=== PATIENT | male | born 1950 | race Caucasian/White ===

== ENCOUNTER 2021-05-11 07:52 | Day surgery (SDC) | payer MEDICARE, OTHER, SELFPAY ==
[2021-05-07 10:46] VITALS: BMI 26.3
--- NOTE | 2021-05-08 09:34 | HO.ANESPROP2 ---
Documented by User: Vickie Corley NP 05/08/21 09:34 HPI - Anesthesia Eval Consult details Narrative: 70yo M for Colonoscopy [facility] Past Medical History Medical History BPH (benign prostatic hyperplasia) Diverticulosis Glaucoma HTN (hypertension) Surgical History Surgical History H/O colonoscopy Hx of bilateral inguinal hernia repair Hx of cataract extraction Hx of total adrenalectomy Social History Social History (Updated 05/07/21 @ 10:43 by Sheri Che RN) Household Members: Spouse Alcohol intake: current Alcohol intake frequency: 0-2 drinks per day Patient Tobacco Use Status: Tobacco use Unknown Advance Directives Information Provided: No Advance Directives on File: No Meds Allergies Allergy/AdvReac Type Severity Reaction Status Date / Time No Known Allergies Allergy Verified 05/11/21 08:49 [No Known Allergies*] Home Medications Medication Instructions Recorded Confirmed Last Taken Type brimonidine 0.2 % eye drops 1 drp OPHTHALMIC (EYE) TID 05/07/21 05/07/21 Unknown History dorzolamide 22.3 mg-timolol 6.8 1 drp OPHTHALMIC (EYE) BID 05/07/21 05/11/21 05/11/21 06:00 History mg/mL eye drops dutasteride 0.5 mg capsule 0.5 mg PO DAILY 05/07/21 05/07/21 Unknown History hydrochlorothiazide 25 mg tablet 25 mg PO DAILY 05/07/21 05/07/21 Unknown History ibuprofen 200 mg tablet 200 mg PO TID PRN 05/07/21 05/07/21 Unknown History latanoprost 0.005 % eye drops 1 drp OPHTHALMIC (EYE) QPM 05/07/21 05/07/21 Unknown History pregabalin 50 mg capsule 150 mg PO BEDTIME 05/07/21 05/07/21 Unknown History Exam Exam Date and Time: May 08, [id number] Height,Weight and Vital Signs: Height 6 ft Weight 87.997 kg Assessment and Plan Assessment Anesthesia Assessment: Chart Reviewed Documented by User: Yari Nino MD 05/11/21 09:10 [facility] Past Medical History Medical History BPH (benign prostatic hyperplasia) Diverticulosis Glaucoma HTN (hypertension) Family History Family history of problems with anesthesia: No Surgical History Surgical History H/O colonoscopy Hx of bilateral inguinal hernia repair Hx of cataract extraction Hx of total adrenalectomy History of Problems with Anesthesia: No Social History Social History (Updated 05/07/21 @ 10:43 by Sheri Che RN) Household Members: Spouse Alcohol intake: current Alcohol intake frequency: 0-2 drinks per day Patient Tobacco Use Status: Tobacco use Unknown Advance Directives Information Provided: No Advance Directives on File: No Meds Allergies Allergy/AdvReac Type Severity Reaction Status Date / Time No Known Allergies Allergy Verified 05/11/21 08:49 [No Known Allergies*] Home Medications Medication Instructions Recorded Confirmed Last Taken Type brimonidine 0.2 % eye drops 1 drp OPHTHALMIC (EYE) TID 05/07/21 05/07/21 Unknown History dorzolamide 22.3 mg-timolol 6.8 1 drp OPHTHALMIC (EYE) BID 05/07/21 05/11/21 05/11/21 06:00 History mg/mL eye drops dutasteride 0.5 mg capsule 0.5 mg PO DAILY 05/07/21 05/07/21 Unknown History hydrochlorothiazide 25 mg tablet 25 mg PO DAILY 05/07/21 05/07/21 Unknown History ibuprofen 200 mg tablet 200 mg PO TID PRN 05/07/21 05/07/21 Unknown History latanoprost 0.005 % eye drops 1 drp OPHTHALMIC (EYE) QPM 05/07/21 05/07/21 Unknown History pregabalin 50 mg capsule 150 mg PO BEDTIME 05/07/21 05/07/21 Unknown History Exam Airway Mallampati Class: II TM Dist: >3cm Neck ROM: Full Assessment and Plan Assessment Anesthesia Assessment: Anesthesia Plan Discussed Final Anesthetic Review Family History of Problems with Anesthesia: No History of Problems with Anesthesia: No NPO: Yes ASA Class: II Final Preanesthetic Review: No Changes in Pt Med Stat, Meds/Allgs Chart Reviewed, Consent Obtained/Reviewed and Anes Risks/Benef Reviewed Patient Risk: Low Procedure Risk: Low Assessment/Block/Sedation in SS: Assess/Block/Sedation-SS Anesthetic Plan Anesthetic Plan: MAC:
[2021-05-11 08:52] VITALS: BP 138/66; PULSE 56; RESP 18; TEMP 36.3; O2SAT 0
[2021-05-11] MEDS: Lactated Ringers 1,000 ML 100 ML IVCONT (08:57)
[2021-05-11 10:14] VITALS: BP 123/66; PULSE 68; RESP 16; TEMP 36.9; O2SAT 97
--- NOTE | 2021-05-11 10:14 | P.BOP_ITS ---
Brief Operative Note Date of Service: 05/11/21 Pre-op diagnosis: Screening Post-op diagnosis: other (Colon polyps) Procedure: Colonoscopy to the cecum with biopsy and removal of polyps Surgeon: Ti Jackson Anesthesia: MAC Was an [employer] used for this Procedure?: No Estimated blood loss (mL): 3.0 Pathology: other (A. Ascending colon polyps) Condition: stable Disposition: PACU
[2021-05-11 10:29] VITALS: BP 117/75; PULSE 60; RESP 18; O2SAT 99
--- NOTE | 2021-05-11 19:02 | OP_ITS ---
SURGEON: Ti Jackson MD INDICATIONS: The patient presents for evaluation of personal history of tubular adenoma of the colon, and colorectal cancer screening. Full consent has been obtained from him for this, including risks of bleeding and perforation. PREOPERATIVE DIAGNOSIS: POSTOPERATIVE DIAGNOSIS: PROCEDURE PERFORMED: Colonoscopy to the cecum with biopsy and removal of polyps. ESTIMATED BLOOD LOSS: COMPLICATIONS: ANESTHESIA: Monitored anesthesia care. ASSISTANTS: SPECIMENS: PREOPERATIVE DIAGNOSES: Personal history of tubular adenoma of the colon and colorectal cancer screening. POSTOPERATIVE DIAGNOSES: Personal history of tubular adenoma of the colon and colorectal cancer screening, small colon polyps, diverticulosis and internal hemorrhoids. DESCRIPTION OF PROCEDURE: The patient was placed in the left lateral decubitus position. The digital rectal exam revealed no abnormalities. The Olympus video pediatric colonoscope was entered into the rectum and advanced easily to the cecum. Once in the cecum, I did identify normal-appearing cecal pouch with appendiceal orifice and a normal-appearing ileocecal valve. The entire cecum and ileocecal valve appeared normal. The scope was slowly withdrawn assessing all mucosal surfaces carefully. Preparation was excellent. In the ascending colon, were 2 flat approximately 5 mm polyps, which were each biopsied and completely removed with cold biopsy forceps. I did not visualize any other polyps, colitis, nor angiodysplasia. There was a moderate amount of sigmoid diverticulosis. In the rectum, scope was retroflexed visualizing internal hemorrhoids, but no other pathology. The rectal mucosa appeared normal. The scope was straightened out and withdrawn from the patient. He tolerated procedure well and was returned to recovery area in stable condition. IMPRESSION: 1. Small colon polyps, status post biopsy and removal. 2. Diverticulosis. 3. Internal hemorrhoids. PLAN: The results of the biopsy will be checked. Given his previous history, I would recommend a followup colonoscopy in 5 years for further screening and surveillance. He was advised not to use any aspirin nor NSAIDs for 1 week. This has been discussed with his . MD YUAN Pozo/[place]ORD / [phone]
== END 2021-05-11 11:03 | disposition home or self-care (01) ==
PROVIDERS: PCP Internal Medicine; Visit Provider Internal Medicine
PROC: 0DJD8ZZ Inspection of Lower Intestinal Tract, Via Natural or Artificial Opening Endoscopic (ICD-10-PCS; CPT 45378; principal; 2021-05-11 09:10)
DX: Z12.11 Encounter for screening for malignant neoplasm of colon (principal); Z86.010 Personal history of colon polyps; D12.2 Benign neoplasm of ascending colon; K57.30 Diverticulosis of large intestine without perforation or abscess without bleeding; K64.8 Other hemorrhoids; K59.00 Constipation, unspecified; I10 Essential (primary) hypertension; N40.0 Benign prostatic hyperplasia without lower urinary tract symptoms; Z79.899 Other long term (current) drug therapy
CPT/HCPCS: 45380; 88305

== ENCOUNTER 2023-09-24 18:05 | Emergency (ER) | payer OTHER, MEDICARE, SELFPAY ==
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
[2023-09-24 18:12] VITALS: BP 142/93; PULSE 87; O2SAT 97
[2023-09-24 18:25] VITALS: BP 179/88; PULSE 80; RESP 16; TEMP 36.8; O2SAT 98; BMI 24.4
--- NOTE | 2023-09-24 18:26 | ECG_ITS ---
Test Reason : CHEST WALL PAIN Blood Pressure : / mmHG Vent. Rate : 077 BPM Atrial Rate : 077 BPM P-R Int : 184 ms QRS Dur : 142 ms QT Int : 408 ms P-R-T Axes : 067 -31 019 degrees QTc Int : 461 ms Sinus rhythm with Premature atrial complexes with Aberrant conduction Left axis deviation Right bundle branch block Abnormal ECG No previous ECGs available Referred By: Lamar Barber Electronically Signed By:Watson Bravo
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
[2023-09-24 20:00] VITALS: BP 171/73; PULSE 81; RESP 16; TEMP 36.9; O2SAT 97
--- NOTE | 2023-09-24 21:57 | MHC.EDTECH ---
This tech assisted nurse with traveler changer,belonging list completed and copy placed in chart.
== END 2023-09-25 00:29 | disposition short-term general hospital (02) ==
PROVIDERS: Emergency Provider Emergency Medicine; PCP Internal Medicine
DX: S22.20XA Unspecified fracture of sternum, initial encounter for closed fracture (principal); S22.41XA Multiple fractures of ribs, right side, initial encounter for closed fracture; V43.52XA Car driver injured in collision with other type car in traffic accident, initial encounter; W22.11XA Striking against or struck by driver side automobile airbag, initial encounter; Y93.89 Activity, other specified; Y92.414 Local residential or business street as the place of occurrence of the external cause; Y99.9 Unspecified external cause status
CPT/HCPCS: 70450; 71250; 72125; 93005; 99285

== ENCOUNTER → 2023-09-24 18:26 | Outpatient (BNV) | payer MEDICARE, SELFPAY | PROVIDERS: Emergency Provider Emergency Medicine; PCP Internal Medicine; Visit Provider Internal Medicine Cardiovascular Disease | DX: R07.9 Chest pain, unspecified (principal) | CPT/HCPCS: 93010 ==

== ENCOUNTER 2024-09-18 11:19 | Outpatient (REF) | payer MEDICARE, OTHER, SELFPAY ==
--- NOTE | ~2024-09-18 | MR_ITS ---
CLINICAL HISTORY: RT ANKLE NON HEALING WOUND R O OSTEO MR right ankle with and without gadolinium Comparison: None Findings: No acute fractures. There is decreased T1 signal and increased T2 signal within the superior aspect of the lateral cuneiform, as well as small areas of increased enhancement in the proximal superior medial and middle cuneiforms and small kissing lesion on the distal navicular bone. There is a complete fusion of the distal tibia, fibula, talus, navicular bone and calcaneus. There is a skin defect in the lateral ankle. No underlying fluid collection or abscess. No abnormal marrow signal deep to the wound in the fused ankle bones. No abnormal fluid within the tendon sheaths or muscle bellies. IMPRESSION: 1. Skin defect in the lateral aspect of the ankle without underlying abscess or fluid collection. No underlying osteomyelitis in the fused ankle bones deep to the skin defect. 2. Increased T2 signal and increased enhancement in the cuneiforms and distal navicular bone thought to most likely represent active degenerative disease, less likely osteomyelitis. This document has been electronically signed by: Thompson Jalloh MD on 09/19/2024 01:56:50
[2024-09-18] MEDS: gadobutroL 10 ML VIAL 9 ML IVPUSH (12:07)
--- OUTSIDE RECORDS SUMMARY | 2024-09-18 13:07 | XMS_ITS | Clinical Summary ---
Author Organization [facility] Address [address] [id number] Care Team Providers Care Composition Worker Name Role Phone Jonathan Little MD Primary Care Provider Unavail able Allergies No known active allergies Medications Medication Sig Dispensed Refills Start Date End Date Status Timolol Hemihydrate (BETIMOL OP) 2 times a day, Refills 0, Maintenance, 09/12/20 14:18:00 EST, Partial fill upon patient request if the prescription is for a schedule II opioid drug. 0 09/12/2020 Active latanoprost (XALATAN) 0.005 % ophthalmic solution INSTILL 1 DROP IN LEFT EYE EVERY NIGHT AT BEDTIME. SEPARATE BY AT LEAST 10 MINUTES FROM OTHER INTRAOCULAR PRESSURE REDUCING EYE DROPS 0 09/12/2020 Active hydroCHLOROthiazide (HYDRODIURIL) tablet 25 mg Take 1 tablet (25 mg total) by mouth daily. 0 09/12/2020 Active dutasteride (AVODART) 0.5 MG capsule Take 1 capsule (0.5 mg total) by mouth daily. 0 09/12/2020 Active dorzolamide-timolol (COSOPT) 22.3-6.8 MG/ML ophthalmic solution Place 1 drop into the left eye 2 (two) times a day. 0 Active brimonidine (ALPHAGAN) 0.2 % ophthalmic solution 0 Activ e Social History Tobacco Use Types Packs/Day Years Used Date Smoking Tobacco: Former Cigarettes 1 - 1974 Smokeless Tobacco: Never Tobacco Cessation:Counseling Given: Not Answered Alcohol Use Standard Drinks/Week Comments Yes 5 (1 standard drink = 0.6 oz pur e alcohol) Sex and Gender Information Value Date Recorded Sex Assigned at Not on file Gender Identity Not on file Sexual Orientation Not on file Job Start Date Occupation Industry Not on file Not on file Not on file Last Filed Vital Signs Vital Sign Reading Time Taken Comments Blood Pressure - - Pulse - - Temperature - - Respiratory Rate - - Oxygen Saturation - - Inhaled Oxygen Concentration - - Weight 90.7 kg (200 lb) 11/04/2022 2:22 PM EST Height 188 cm (6' 2 ) 11/04/2022 2:22 PM EST Body Mass Index 25.68 11/04/2022 2:22 PM EST Plan of Treatment Health Maintenance Due Date Last Done Comments Hepatitis C Screening 1950 COVID-19 Vaccine (#1) 1948 Depression Screening 1960 Preventative Health Evaluation 1966 DTap / Tdap / Td (1 - Tdap) 1967 Shingrix-Zoster Vaccine (1 of 2) 1998 Fall Risk Assessment 2013 Pneumococcal Vaccine (1 of 1 - PCV) 2013 RSV Adult > 60+ Yrs or Pregn ant (1 - 1-dose 75+ series) 2023 Influenza Vaccine (#1) 2024 06/11/2020 Hepatitis B Vaccines Aged Out No long er eligible based on patient's age to complete this topic RSV Ped < 20 months Aged Out No longe r eligible based on patient's age to complete this topic Care Teams Composition Worker Relationship Specialty Start Date End Date Jonathan Little MD PCP - General Internal Medicine 10/06/22
--- OUTSIDE RECORDS SUMMARY | 2024-09-18 13:07 | XMS_ITS ---
Author Name [facility] Organization Unknown History of Medication Use Medication Directions Dispensed Refills Start Date End Date [facility] lidocaine (PF) 10 mg/mL (1 %) injection solution Take 2 mL by injection route. 07/13/2023 completed lorazepam 0.5 mg tablet TAKE 1 TABLET BY MOUTH BEFORE FLIGHT NEEDED 04/30/2023 completed hydrochlorothiazide 25 mg tablet TAKE 1 TABLET BY MOUTH EVERY DAY 04/30/2023 active hydrochlorothiazide 25 mg tablet TAKE 1 TABLET BY MOUTH EVERY DAY 07/13/2023 active dutasteride 0.5 mg capsule TAKE 1 CAPSULE BY MOUTH EVERY DAY 07/13/2023 active ciprofloxacin 500 mg tablet TAKE 1 TABLET BY MOUTH 1 HOUR BEFORE PROCEDURE AND 1 TABLET 10 HOURS AFTER 07/13/2023 completed latanoprost 0.005 % eye drops INSTILL 1 DROP LEFT EYE EVERY NIGHT AT BEDTIME 04/30/2023 active sertraline 50 mg tablet TAKE 1 TABLET BY MOUTH EVERY DAY 04/30/2023 completed latanoprost 0.005 % eye drops INSTILL 1 DROP LEFT EYE EVERY NIGHT AT BEDTIME 07/13/2023 active cyclobenzaprine 10 mg tablet TAKE 1 TABLET BY MOUTH EVERY NIGHT AT BEDTIME 07/13/2023 completed lidocaine (PF) 10 mg/mL (1 %) injection solution Take 2 mL by injection route. 04/30/2023 completed sertraline 50 mg tablet TAKE 1 TABLET BY MOUTH EVERY DAY 07/13/2023 completed ciprofloxacin 500 mg tablet TAKE 1 TABLET BY MOUTH 1 HOUR BEFORE PROCEDURE AND 1 TABLET 10 HOURS AFTER 04/30/2023 completed cyclobenzaprine 10 mg tablet TAKE 1 TABLET BY MOUTH EVERY NIGHT AT BEDTIME 04/30/2023 completed Kenalog 40 mg/mL suspension for injection Take 1 mL by injection route. 07/13/2023 completed Kenalog 40 mg/mL suspension for injection Take 1 mL by injection route. 04/30/2023 completed dorzolamide 22.3 mg-timolol 6.8 mg/mL eye drops INSTILL 1 TO 2 DROPS IN LEFT EYE TWICE DAILY 07/13/2023 active brimonidine 0.2 % eye drops INSTILL 1 DROP IN LEFT EYE TWICE DAILY INSTILL 1 DROP IN LEFT EYE TWICE DAILY INSTILL PRIOR TO COSOPT 04/30/2023 active brimonidine 0.2 % eye drops INSTILL 1 DROP IN LEFT EYE TWICE DAILY INSTILL 1 DROP IN LEFT EYE TWICE DAILY INSTILL PRIOR TO COSOPT 07/13/2023 active dutasteride 0.5 mg capsule TAKE 1 CAPSULE BY MOUTH EVERY DAY 04/30/2023 active dorzolamide 22.3 mg-timolol 6.8 mg/mL eye drops INSTILL 1 TO 2 DROPS IN LEFT EYE TWICE DAILY 04/30/2023 active lorazepam 0.5 mg tablet TAKE 1 TABLET BY MOUTH BEFORE FLIGHT NEEDED 07/13/2023 completed Problems Problem Status Onset Date Problem Type Date of Resoluti on Source Osteoarthritis of left knee joint active 2022-12-22 ProblemAct [facility] Pain of left calf active 2023-04-27 ProblemAct [facility] Acute tear of medial meniscus of left knee active 2022-12-03 ProblemAct [facility]_AO NECT Pain of left knee joint active 2023-06-16 ProblemAct [facility]
== END 2024-09-18 11:20 | disposition home or self-care (01) ==
LOC: HO.MRI 11:19
PROVIDERS: PCP Internal Medicine; Visit Provider Surgery
DX: L97.815 Non-pressure chronic ulcer of other part of right lower leg with muscle involvement without evidence of necrosis (principal)
CPT/HCPCS: 73723; A9585

== ENCOUNTER → 2024-09-18 11:38 | Outpatient (BNV) | payer MEDICARE, OTHER, SELFPAY | PROVIDERS: PCP Internal Medicine; Visit Provider Radiology Diagnostic Radiology | DX: S91.001A Unspecified open wound, right ankle, initial encounter (principal) | CPT/HCPCS: 73723 ==

== ENCOUNTER 2024-09-24 09:42 | Outpatient (REF) | payer MEDICARE, OTHER, SELFPAY ==
--- NOTE | ~2024-09-24 | US_ITS ---
EXAMINATION: US NONINVASIVE ASSESSMENT OF THE BOTH LOWER EXTREMITY WITH ARTERIAL DUPLEX AND ANKLE BRACHIAL INDICES (ABIS) CLINICAL INFORMATION: Nonhealing wound. COMPARISON: None available. TECHNIQUE: Duplex Doppler techniques with waveform analysis and measurement of velocities in the common femoral, profunda femoris, superficial femoral, popliteal and tibial arteries were performed. In addition, ankle pulse volume recordings, ankle pressure measurements and ankle brachial indices were obtained of the both lower extremity arterial system. The study was performed only at rest. FINDINGS: NONINVASIVE ASSESSMENT OF THE ARTERIES OF BILATERAL LOWER EXTREMITIES WITH ABIs: RIGHT LEG: Ankle-brachial index: 1.1 Ankle PVR: Normal LEFT LEG: Ankle-brachial index: 1.08 Left ankle PVR: Normal. VIANNEY Reference: 0.9 - 1.4 = normal - no significant arterial disease 0.7 - 0.89 = mild peripheral arterial disease 0.51 - 0.69 = moderate peripheral arterial disease 0.50 = severe peripheral arterial disease RIGHT LOWER EXTREMITY DUPLEX ULTRASOUND: Common femoral artery: 90 cm/s. Triphasic waveform. Profunda femoris artery: 76 cm/s. Triphasic waveform. Superficial femoral artery (proximal): 109 cm/s. Triphasic waveform. Superficial femoral artery (mid): 80 cm/s. Triphasic waveform. Superficial femoral artery (distal): 70 cm/s. Triphasic waveform. Popliteal artery: 73 cm/s Biphasic waveform. Posterior tibial artery: 77 cm/s Biphasic waveform. Dorsalis pedis artery: 20 cm/s. Monophasic waveform. Anterior tibialis artery: 68 cm/s. Biphasic waveform. LEFT LOWER EXTREMITY DUPLEX ULTRASOUND: Common femoral artery: 89 cm/s. Triphasic waveform. Profunda femoris artery: 55 cm/s. Triphasic waveform. Superficial femoral artery (proximal): 123 cm/s. Triphasic waveform. Superficial femoral artery (mid): 73 cm/s. Triphasic waveform. Superficial femoral artery (distal): 77 cm/s. Triphasic waveform. Popliteal artery: 61 cm/s Triphasic waveform. Posterior tibial artery: 68 cm/s Biphasic waveform. Dorsalis base artery: 46 cm/s. Biphasic waveform. Anterior tibialis artery: 71 cm/s. Biphasic waveform. US/US arterial duplex BI w/ VIANNEY IMPRESSION: Mild inflow disease from the popliteal arteries to the dorsalis pedis arteries bilaterally. Electronically signed by: Nikita Leavitt MD 09/26/2024 08:52 AM EST
--- OUTSIDE RECORDS SUMMARY | 2024-09-24 14:08 | XMS_ITS | Clinical Summary ---
Author Organization [facility] Address [address] [id number] Care Team Providers Care Parts Counter Clerk Name Role Phone Jonathan Little MD Primary [...] age to complete this topic Care Teams Parts Counter Clerk Relationship Specialty Start Date End Date Jonathan Little MD PCP - General Internal Medicine 10/06/22
--- OUTSIDE RECORDS SUMMARY | 2024-09-24 14:08 | XMS_ITS | Patient Health Record ---
Author Organization [facility] Address [address] [place] [address] Care Team Providers Care Automatic Blocker Name Role Phone Jonathan Little MD Primary Care Provider Unavailab Ti Mcclellan Unavailable [phone] REASON FOR REFERRAL No Information MEDICATIONS Medication SIG (Take, Route, Frequency, Duration) Notes Start Date End Date Status hydroCHLOROthiazide 25 MG TAKE 1 TABLET BY MOUTH EVERY DAY Oral for 90 Active Dorzolamide HCl-Timolol Mal 22.3-6.8 MG/ML INSTILL 1 DROP IN LEFT EYE TWICE DAILY Ophthalmic for 30 Active Dutasteride 0.5 MG TAKE 1 CAPSULE BY MOUTH ONCE EVERY DAY Oral for 90 Active Ibuprofen 200 MG 1 tablet with food or milk as needed Orally Three times a day PRN Active Latanoprost 0.005 % INSTILL 1 DROP IN LEFT EYE EVERY NIGHT AT BEDTIME. SEPARATE BY AT LEAST 10 MINUTES FROM OTHER INTRAOCULAR PRESSURE REDUCING EYE DROPS Ophthalmic for 90 Active Brimonidine Tartrate 0.2 % Ophthalmic for 90 Active Pregabalin 50 MG (Schedule V Drug) TAKE ONE CAPSULE BY MOUTH THREE TIMES DAILY AT BEDTIME Oral for 30 PRN for post-shingle s pain Active IMMUNIZATIONS Vaccine Route Administration Date Status Comme nts Influenza Unknown 06/11/2020 Administered SOCIAL HISTORY Sex Assigned At : Social History Observation Description Sex Assigned At Unknown PROBLEMS Problem Type ICD Code Onset Dates Problem Status W/U Status Risk SNOMED Code Notes Problem Encounter for screening for malignant neoplasm of colon (Z12.11) Active confirmed 692278552 Problem History of adenomatous polyp of colon (Z86.010) Active confirmed 127397446 Problem Encounter for screening for malignant neoplasm of rectum (Z12.12) Active confirmed Screening fo r malignant neoplasm of rectum (008067997) Problem Constipation, unspecified constipation type (K59.00) Active confirmed 36197879 Problem Diverticulosis of sigmoid colon (K57.30) Active confirmed Diverticulosis of sigmoid colon (282326955) PLAN OF TREATMENT Pending Test Test Name Order Date Pathology 05/11/2021 Future Test Test Name Order Date COLONOSCOPY 12/30/2015 COLONOSCOPY 02/10/2021 Insurance Providers Payer Name Payer Address Payer Phone Subscriber Number Group Number Insured Name Patient Relationship to Insured Coverage Start Date Coverage End Date MEDICARE OF [place] [address] [place] [address] [id number] ALEXANDRA JOSHI Self - patient is the insured [facility] [employer] [address] [place] [address] [id number] ALEXANDRA JOSHI Self - patient is the insured MEDICAL (GENERAL) HISTORY Medical History History ICD Code Hx of Tubular adenoma and hy perplastic polyps--colonoscopies in 1999 and 2002 with small tubular adenomas, and 2005 and 01/2011 with only hyperplastic polyps. Diverticulosis seen on previous colonosc opies Osteomyelitis of right leg as a child Denies OH,DM,CVA,Lung disease,renal dise ase Elevated PSA-prostate biopsi es--has had MRI--being followed by Dr. 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 It was benign lesion without any hormonal production
== END 2024-09-24 09:43 | disposition home or self-care (01) ==
LOC: HO.US 09:42
PROVIDERS: PCP Internal Medicine; Visit Provider Surgery
DX: L97.815 Non-pressure chronic ulcer of other part of right lower leg with muscle involvement without evidence of necrosis (principal); I87.2 Venous insufficiency (chronic) (peripheral)
CPT/HCPCS: 93922; 93925

== ENCOUNTER → 2024-09-24 09:44 | Outpatient (BNV) | payer MEDICARE, OTHER, SELFPAY | PROVIDERS: PCP Internal Medicine; Visit Provider Radiology Diagnostic Radiology | DX: I73.9 Peripheral vascular disease, unspecified (principal) | CPT/HCPCS: 93922; 93925 ==

== ENCOUNTER → 2025-02-25 06:24 | Outpatient (BNV) | payer MEDICARE, OTHER, SELFPAY | PROVIDERS: PCP Internal Medicine; Visit Provider Radiology Diagnostic Radiology | DX: L94.2 Calcinosis cutis (principal) | CPT/HCPCS: 73610 ==